=== PATIENT | male | born 1940 | race Caucasian/White ===

== ENCOUNTER 2022-05-18 09:17 | Outpatient (CLI) | payer MEDICARE, SELFPAY ==
[2022-05-18 13:59] LABS: Albumin* 4.5 g/dL (3.3-5.0); Chloride* 102 mmol/L (96-114); Potassium* 3.8 mmol/L (3.6-5.1); Sodium* 141 mmol/L (135-149)
[2022-05-18 14:01] LABS: Cholesterol* 175 mg/dL (90-199); Creatinine* 1.4 mg/dL (0.5-1.5); Estimated Glomerular Filt Rate 51 ml/min
[2022-05-18 14:02] LABS: Alanine Aminotransferase* 16 U/L (4-50); Alkaline Phosphatase* 70 U/L (40-150); Aspartate Amino Transferase* 26 U/L (12-35); Bilirubin Total* 0.8 mg/dL (0.1-1.5); Blood Urea Nitrogen* 20 mg/dL (7-30); Carbon Dioxide* 30 mmol/L (20-32); Glucose* 90 mg/dL (60-115); Total Protein* 7.3 g/dL (6.0-8.3); Triglycerides* 120 mg/dL (40-149)
[2022-05-18 14:03] LABS: Calcium* 9.2 mg/dL (8.4-10.6); HDL Cholesterol* 52 mg/dL (>=40); LDL Cholesterol Calculated 99 mg/dL (<100)
[2022-05-18 14:31] LABS: PSA Screen* 4.98 ng/mL (0.10-4.00)
== END 2022-05-18 09:18 | disposition home or self-care (01) ==
PROVIDERS: Dermatology; PCP Family Medicine; Visit Provider Family Medicine
DX: Z00.00 Encounter for general adult medical examination without abnormal findings (principal); L81.9 Disorder of pigmentation, unspecified; I10 Essential (primary) hypertension; N40.0 Benign prostatic hyperplasia without lower urinary tract symptoms; Z13.6 Encounter for screening for cardiovascular disorders
CPT/HCPCS: 80053; 80061; 84153

== ENCOUNTER 2022-07-19 16:41 | Outpatient (CLI) | payer MEDICARE, SELFPAY ==
[2022-07-19 23:00] LABS: Vitamin B12* 414 pg/mL (243-894)
[2022-07-23 16:29] LABS: Prostate Specific Antigen%Free 18 %; Prostate Specific AntigenTotal 5.5 ng/mL (0.0-4.0)
== END 2022-07-19 16:42 | disposition home or self-care (01) ==
PROVIDERS: PCP Family Medicine; Visit Provider Family Medicine
DX: Z00.00 Encounter for general adult medical examination without abnormal findings (principal); R41.3 Other amnesia; R97.20 Elevated prostate specific antigen [PSA]; I10 Essential (primary) hypertension; Z12.5 Encounter for screening for malignant neoplasm of prostate
CPT/HCPCS: 82607; 84153; 84154; 84443

== ENCOUNTER 2022-09-16 07:04 | Outpatient (CLI) | payer MEDICARE, SELFPAY ==
--- NOTE | 2022-09-16 07:15 | CRLHL7_ITS ---
For Patients: As a result of the Century Cures Act, medical imaging exams and procedure reports are released immediately into your electronic medical record. You may view this report before your referring provider. If you have questions, please contact your health care provider. Indication: Memory loss. Technique: Multiplanar multisequence noncontrast MR images acquired through the brain. Comparison: None. Findings: Prominence of the ventricles and sulci compatible with mild diffuse cerebral volume loss. There is mild cerebellar volume loss. No mass effect or midline shift. Scattered T2 FLAIR hyperintensities in the supratentorial white matter, typical for mild chronic microvascular ischemic changes. No intracranial hemorrhage or pathologic extra-axial fluid collection. No diffusion restriction to suggest acute infarction. The major arterial flow voids of the skull base are preserved. Thinning of the ocular lenses. Mild ethmoid sinus mucosal thickening. The mastoid air cells are clear. Impression: 1. No acute intracranial abnormality. 2. Mild chronic microvascular ischemic changes. 3. Mild diffuse cerebral and cerebellar volume loss. Dictated by Abimael Jasso MD @ 09/16/2022 7:58:51 AM (Electronically Signed)
== END 2022-09-16 07:05 | disposition home or self-care (01) ==
LOC: MRI 07:05
PROVIDERS: PCP Family Medicine; Visit Provider Family Medicine
DX: R41.3 Other amnesia (principal); I67.82 Cerebral ischemia
CPT/HCPCS: 70551

== ENCOUNTER 2022-10-12 16:22 | Outpatient (CLI) | payer MEDICARE, SELFPAY ==
[2022-10-12 23:31] LABS: Chloride* 106 mmol/L (96-114)
[2022-10-12 23:32] LABS: Potassium* 5.6 mmol/L (3.6-5.1); Sodium* 138 mmol/L (135-149)
[2022-10-12 23:34] LABS: Carbon Dioxide* 27 mmol/L (20-32); Creatinine* 1.4 mg/dL (0.5-1.5); Estimated Glomerular Filt Rate 51 ml/min
[2022-10-12 23:35] LABS: Blood Urea Nitrogen* 24 mg/dL (7-30); Glucose* 83 mg/dL (60-115)
== END 2022-10-12 16:23 | disposition home or self-care (01) ==
PROVIDERS: PCP Family Medicine; Visit Provider Family Medicine
DX: I10 Essential (primary) hypertension (principal); E87.6 Hypokalemia
CPT/HCPCS: 80048

== ENCOUNTER 2022-11-08 10:39 | Outpatient (CLI) | payer MEDICARE, SELFPAY ==
[2022-11-08 22:42] LABS: Chloride* 105 mmol/L (96-114); Potassium* 4.4 mmol/L (3.6-5.1); Sodium* 140 mmol/L (135-149)
[2022-11-08 22:45] LABS: Blood Urea Nitrogen* 20 mg/dL (7-30); Carbon Dioxide* 27 mmol/L (20-32); Creatinine* 1.4 mg/dL (0.5-1.5); Estimated Glomerular Filt Rate 51 ml/min; Glucose* 108 mg/dL (60-115)
== END 2022-11-08 10:40 | disposition home or self-care (01) ==
LOC: NFLDREF 11:07
PROVIDERS: PCP Family Medicine; Visit Provider Family Medicine
DX: N28.9 Disorder of kidney and ureter, unspecified (principal)
CPT/HCPCS: 80048

== ENCOUNTER 2023-11-24 09:04 | Outpatient (CLI) | payer MEDICARE, SELFPAY | END 2023-11-24 09:05 | disposition home or self-care (01) | LOC: NFLDREF 11-25 05:34 | PROVIDERS: PCP Family Medicine; Referring Provider Family Medicine; Visit Provider Family Medicine | DX: Z79.899 Other long term (current) drug therapy (principal); Z13.1 Encounter for screening for diabetes mellitus; Z12.5 Encounter for screening for malignant neoplasm of prostate | CPT/HCPCS: 80048; 80061; G0103 ==

== ENCOUNTER 2025-02-14 09:12 | Outpatient (CLI) | payer MEDICARE, BC, SELFPAY | END 2025-02-14 09:13 | disposition home or self-care (01) | PROVIDERS: PCP Family Medicine; Visit Provider Family Medicine | DX: Z00.01 Encounter for general adult medical examination with abnormal findings (principal); I10 Essential (primary) hypertension; R41.3 Other amnesia; Z79.899 Other long term (current) drug therapy | CPT/HCPCS: 80053; 80061; 82306; 82607 ==